=== PATIENT | male | born 1950 | race Caucasian/White ===

== ENCOUNTER 2018-07-09 10:21 | Day surgery (SDC) | payer OTHER, BC ==
[2018-07-08 16:59] VITALS: BMI 24.4
--- NOTE | 2018-07-09 13:03 | HP ---
Satellite 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: Alzheimer's, CVA, Dementia, Migraine, Multiple Sclerosis, Peripheral Neuropathy, Parkinson's, Seizure, Syncope, TIA, Vertigo, Other Cardiovascular: No: AFIB, Aneurysm, Aortic Insufficiency, Aortic Stenosis, CAD, CHF, Deep Vein Thrombosis, HTN, Hyperlipdemia, MS, Mitral Insufficiency, Mitral Stenosis, Murmur, Pulmonary Hypertension, Other Pulmonary: No: Asthma, Bronchitis, Cancer, COPD, O2 Dependent, Pneumonia, Previously Intubated, Pulmonary Embolus, Pulmonary Fibrosis, Sleep Apnea, Other Gastrointestinal: No: Ascites, Cancer, Constipation, Crohn's Disease, Diverticulitis, Diverticulosis, Esophageal Varices, Gastritis, GERD, GI Bleed, Hemorrhoids, Hiatal Hernia, Inflamatory Bowel Disease, Irritable Bowel Disease, Pancreatitis, Peptic Ulcer Disease, Ulcerative Colitis, Other Renal/: Yes: Neurogenic Bladder. No: Renal Failure, Renal Inusuff, BPH, Cancer, Hematuria, Hemodialysis, Renal Calculi, UTI, Other Infectious Disease: No: AIDS, C-Diff, Herpes Zoster, HIV, MRSA, STD's, Tuberculosis, VREF, Other Musculoskeletal: No: Bursitis, Chronic low back pain, Hemiparesis, Hemiplegia, Osteoarthritis, Paraplegia, Other - Current Medications Current Medications: Home Medications Medication Instructions Recorded Aspirin [Aspir 81] 81 mg PO DAILY 09/30/12 [place]-3 Fatty Acids/Fish Oil 1 each PO DAILY capsule 09/30/12 [[place] 3 1,000 Mg Softgel] Ascorbic Acid [Vitamin C] 500 mg PO DAILY tablet 07/18/15 Satellite Physical Exam - Physical Examination Vital Signs: Vital Signs Period Temp Pulse Resp BP Sys/[place] Pulse Ox Last 24 Hr 98.7 F-98.7 F 62-62 20-20 149-149/63-63 97 General Appearance: Well Nourished, Well Developed, Alert & Oriented x3 ENT: Clear, No Discharge, No masses Lung: Clear to auscultation Abdomen: Soft, No tenderness, No CVA Extremities: No edema, No tenderness/swelling Satellite Impression/Plan - Impression/Plan Impression: non-obstructive urinary retention Operative Procedure: bilateral interstim implants Date to be Performed: 07/09/18
[2018-07-09] MEDS ORDERED: ACETAMINOPHEN 1000 MG/100 ML VIAL (NON FORMULARY) IVPB ONE (13:06)
[2018-07-09] MEDS ORDERED: IBUPROFEN 800 MG/8 ML IJ IVPB SCH (13:15)
[2018-07-09] MEDS ORDERED: DEXTROSE 5%-0.45% SALINE 1,000 ML IV SCH (13:15)
[2018-07-09] MEDS ORDERED: LIDOCAINE HCL 1%, 10 MG/ML (20ML VIAL) ONE (13:23)
[2018-07-09] MEDS ORDERED: MIDAZOLAM HCL 2 MG/2 ML SINGLE DOSE VIAL ONE ×2 (14:00→14:05)
[2018-07-09] MEDS ORDERED: LIDOCAINE 1%/EPI 1:100000 (50 ML MULTI DOSE VIAL) INF ONE (14:15)
[2018-07-09] MEDS ORDERED: ACETAMINOPHEN INJECTION 100 ML IVPB ONE (15:45)
--- NOTE | 2018-07-09 16:36 | OP ---
DATE OF OPERATION: 07/09/2018 PREOPERATIVE DIAGNOSIS: Nonobstructive urinary retention. POSTOPERATIVE DIAGNOSIS: Nonobstructive urinary retention. PROCEDURE: Bilateral InterStim battery and lead placement, 20900, [id number] bilateral. SURGEON: Chris Webster MD ESTIMATED BLOOD LOSS: Minimal. PREOPERATIVE INDICATIONS: Patient a 67-year-old male with nonobstructive urinary retention. He had a PNE test in the office which showed greater than 50% improvement. He comes to the OR today for bilateral implants. DESCRIPTION OF PROCEDURE: Patient was brought to the OR, placed on the table in supine position and then placed in the prone position. All pressure points were protected. Patient was given IV sedation and IV antibiotics. The buttocks and lower back were prepped and draped sterilely. A timeout was performed. S3 foramen were identified on fluoroscopy in both AP and lateral views. Lidocaine with epi was injected into the skin and finder needles were placed into the S3 foramen bilaterally. Good S3 response including christophe, toe deflection, and penis sensation were found at low amplitude bilaterally. No evidence of calf rotation was seen. The appearance of the needles were optimal on the x-ray. Using Seldinger technique, quadrupole leads were placed, one on each side, and placed under fluoroscopic guidance. All electrodes on both leads showed again good response at low amplitude. The leads were dropped, and then they were tunneled into the skin laterally, one to each battery pocket on each side of the buttock. The leads were then connected to the batteries, and the batteries were each placed one on each side in the separate pocket. Wounds were closed in 2 layers with 3-0 Vicryl and 4-0 Biosyn. Wounds were dressed. Patient was woken up. CHRIS WEBSTER M.D. [id number]
[2018-07-09 17:10] VITALS: BP 148/89; PULSE 68; TEMP 98.5
== END 2018-07-09 17:00 | disposition home or self-care (01) ==
LOC: JASU-SURG 10:21
PROVIDERS: ATTEND Urology
PROC: 01HY0MZ Insertion of Neurostimulator Lead into Peripheral Nerve, Open Approach (ICD-10-PCS; 2018-07-09)
PROC: 0JH70MZ Insertion of Stimulator Generator into Back Subcutaneous Tissue and Fascia, Open Approach (ICD-10-PCS; principal; 2018-07-09 12:00)
DX: N39.498 Other specified urinary incontinence (principal); R33.8 Other retention of urine; E11.9 Type 2 diabetes mellitus without complications; I10 Essential (primary) hypertension; J44.9 Chronic obstructive pulmonary disease, unspecified; Z87.891 Personal history of nicotine dependence
CPT/HCPCS: 64581; 64590; C1767; C1778; 94760; J0131

== ENCOUNTER 2018-12-09 01:30 | Emergency (ER) | payer OTHER, BC ==
--- NOTE | 2018-12-09 01:37 | PDOC ---
History of Present Illness - General Chief Complaint: Urinary Problem Stated Complaint: URINARY RETENTION Time Seen by Provider: 12/09/18 01:37 History Source: Patient, Family Exam Limitations: No Limitations - History of Present Illness Initial Comments: 12/09/18 01:44 HPI 68year old male with non obstructive urinary retention and neurogenic bladder with b/l neurostimulators, colon ca s/p remission and resection, arrhythmia, HTN , HLD presenting with acute on chronic urinary retention since 10AM when Dr Webster removed his yeung that has been in place x 1 week. He usually self catheterizes, but was unable to despite multiple attempts. Increased suprapubic pressure, otherwise Denies fever, chills, chest pain, SOB, palpitation, dizziness, weakness, N, V, D, leg swelling, no new changes in medications. Allergies: NKA Past Medical History: non obstructive urinary retention and neurogenic bladder with b/l neurostimulators, colon ca s/p remission and resection, arrhythmia, HTN , HLD Social history: Lives with family. No smoking. No alcohol. No illicit drugs. Surgical history: neurostimulators, colon resection PMD: Dr Valencia Urologist: Chris Haddad Review of systems Constitutional: no fevers or chills. CVS: no cp or syncope. Resp: no sob. Gastrointestinal: no, nausea or vomiting. +abdominal pain Genitourinary: +urinary retention; +urgency. No dysuria or hematuria. MUSCULOSKELETAL: No joint pain and swelling. No neck or back pain. SKIN: no redness or skin changes, no discharge, no rash. No wounds. NEUROLOGIC: No weakness, numbness or tingling. Allergic/Immunologic: no allergies All other systems reviewed and negative, or as documented in HPI. Physical exam: General: well appearing, NAD. HEENT: NCAT, PERRL, EOMI, clear conjunctiva, anicteric, moist mucus membranes, clear oropharynx, no oral lesions.. Neck: neck supple, FROM Resp: CTAB, normal and even respirations, no respiratory distress CVS: RRR, no murmurs, 2+ peripheral pulses throughout, no peripheral edema Abdomen: soft, nondistended, no peritoneal signs. +suprapubic tenderness, no rebound or guarding. No CVAT : normal external genitalia, normal testicular lie. Back: nontender, normal inspection and ROM MSK: no edema, PEREZ x4, ROM intact. No clubbing or cyanosis. normal bulk and tone. Neuro: alert, no focal neuro deficits. Skin: warm and well perfused, cap refill <2 sec, normal color Past History - Past Medical History Allergies/Adverse Reactions: Allergies Allergy/AdvReac Type Severity Reaction Status Date / Time No Known Allergies Allergy Verified 12/09/18 01:43 Home Medications: Ambulatory Orders Carvedilol Phosphate [Carvedilol ER] 80 mg PO DAILY 12/09/18 Diltiazem [Cardizem -] 0 mg PO DAILY 12/09/18 Ezetimibe 10 mg PO DAILY 12/09/18 Ramipril 10 mg PO DAILY 12/09/18 levoFLOXacin [Levaquin -] 500 mg PO DAILY #6 tablet 12/09/18 Anemia: No Asthma: No Cancer: Yes (CA OF COLON 1994, NO CHEMO) Cardiac Disorders: Yes (HX CARDIAC ARRYTHMIA, RATE WENT UP TO 165) CVA: No COPD: No CHF: No Dementia: No Diabetes: No GI Disorders: No Disorders: No HTN: Yes Hypercholesterolemia: Yes Liver Disease: No Seizures: No Thyroid Disease: No - Surgical History Abdominal Surgery: Yes (RESECTION OF COLON DUE TO CA) Appendectomy: No Cardiac Surgery: No Cholecystectomy: No Lung Surgery: No Neurologic Surgery: No Orthopedic Surgery: No - Suicide/Smoking/Psychosocial Hx Smoking History: Former smoker Have you smoked in the past 12 months: No If you are a former smoker, when did you quit?: 1971 Hx Alcohol Use: Yes (6 BEERS/DAY) Drug/Substance Use Hx: No Substance Use Type: Alcohol Hx Substance Use Treatment: No Medical Decision Making - Medical Decision Making 12/09/18 01:44 hpi as documented VS reviewed wnl. urinary retention, acute on chronic placed yeung here, with 2L clear yellow urine UA_ neg for infxn, f/u cultures feels clinically improved levaquin for UTI, checked prior urine culture, 1 wk course will call urologist Dr Webster regarding his neurogenic bladder/retention after yeung removal dc home with leg bag, yeung cath care. Pt informed of my clinical impression, treatment recommendations and disposition plan. All questions answered to patient's satisfaction and expressed understanding and comfort with this. Reasons for returning to the ED sooner discussed with the patient otherwise, follow up with primary care physician and urologist. At the time of discharge, the patient is alert, clinically improved, tolerating po and verbalizes understanding of instructions. Patient does not suffer from an acute life-threatening medical condition at this time he is safe for outpatient follow-up. 12/09/18 01:45 12/09/18 02:35 *DC/Admit/Observation/Transfer Diagnosis at time of Disposition: Acute urinary retention, UTI (urinary tract infection) - Discharge Dispostion Disposition: HOME Condition at time of disposition: Stable Decision to Admit order: No - Prescriptions Prescriptions: levoFLOXacin [Levaquin -] 500 mg PO DAILY #6 tablet - Referrals Referrals: Chris Webster MD [Primary Care Provider] - - Patient Instructions Printed Discharge Instructions: How to Care for Your Yeung Catheter -- Male, DI for Urinary Tract Infection (UTI) - Post Discharge Activity
[2018-12-09 02:04] VITALS: TEMP 97.9; BMI 25.0
[2018-12-09 02:09] VITALS: BP 119/77; PULSE 79
[2018-12-09 02:22] LABS: EPI CELLS 0.7 /HPF (0-5); PH,URINE 6.5 (5.0-8.0); URINE APPEARANCE CLOUDY; URINE BACTERIA 285.9 /hpf (NEGATIVE); URINE BILIRUBIN NEGATIVE (NEGATIVE); URINE CASTS 1 /hpf (0-8); URINE COLOR YELLOW; URINE GLUCOSE (UA) NEGATIVE (NEGATIVE); URINE KETONE NEGATIVE (NEGATIVE); URINE LEUK ESTERASE 3+ (NEGATIVE); URINE NITRITE POSITIVE (NEGATIVE); URINE PROTEIN NEGATIVE (NEGATIVE); URINE RBC 3 /hpf (0-4); URINE UROBILINOGEN 0.2 mg/dL (0.2-1.0); URINE WBC 285 /hpf (0-5)
[2018-12-09] MEDS ORDERED: levoFLOXacin 750 MG TABLET PO ONE (02:32)
== END 2018-12-09 02:41 | disposition home or self-care (01) ==
LOC: FER 01:30
PROC: 0T9B70Z Drainage of Bladder with Drainage Device, Via Natural or Artificial Opening (ICD-10-PCS; principal; 2018-12-09)
DX: N39.0 Urinary tract infection, site not specified (principal); Z87.891 Personal history of nicotine dependence; I10 Essential (primary) hypertension; E78.5 Hyperlipidemia, unspecified; Z85.038 Personal history of other malignant neoplasm of large intestine; I49.9 Cardiac arrhythmia, unspecified
CPT/HCPCS: 51702; 81003; 87086; 87186; 99282-25